=== PATIENT | female | born 1940 | race Caucasian/White ===

== ENCOUNTER → 2016-09-23 16:24 | Outpatient (CLI) | payer MEDICARE, BC ==
[2013-12-30 07:43] VITALS: BMI 36.6
[~2016-09-23 16:24] MED LIST: ASPIRIN325 MG PO; COREG 3.1253.125 MG PO; MULTIGEN FOLIC1 EACH PO; PRILOSEC20 MG PO
== END | disposition home or self-care (01) ==
LOC: D.MAMMO 11:15
DX: Z12.31 Encounter for screening mammogram for malignant neoplasm of breast (principal)

== ENCOUNTER → 2016-10-31 17:13 | Outpatient (CLI) | payer MEDICARE, BC ==
[2013-12-30 07:43] VITALS: BMI 36.6
== END | disposition home or self-care (01) ==
LOC: D.MAMMO 13:30
DX: R92.8 Other abnormal and inconclusive findings on diagnostic imaging of breast (principal)

== ENCOUNTER 2017-06-22 21:21 | Emergency (ER) | payer MEDICARE, BC ==
[2013-12-30 07:43] VITALS: BMI 36.6
[2017-06-22 22:24] LABS: APPEARANCE CLOUDY (CLEAR); COLOR YELLOW (YELLOW); GLUCOSE NEGATIVE (NEGATIVE); KETONE NEGATIVE (NEGATIVE); NITRITE POSITIVE (NEGATIVE); PROTEIN 1+ mg/dL (NEGATIVE); SPECIFIC GRAVITY 1.015 (1.005-1.020); UROBILINOGEN NORMAL (NORMAL)
[2017-06-22 22:25] LABS: BILIRUBIN NEGATIVE (NEGATIVE)
[2017-06-22 22:33] LABS: BACTERIA MODERATE /hpf (NONE SEEN); EPITHELIAL CELLS 0-5 /hpf (0-5); WHITE CELLS - URINE >50 /hpf (0-5)
[2017-07-03] MEDS ORDERED: PROTONIX40 MG PO (07:14)
[2017-07-03] MEDS ORDERED: CARAFATE1 G/10 ML PO (07:14)
== END 2017-06-22 22:43 | disposition home or self-care (01) ==
LOC: D.ER 21:21
PROVIDERS: Family Medicine
DX: N39.0 Urinary tract infection, site not specified (principal); K58.9 Irritable bowel syndrome, unspecified

== ENCOUNTER → 2017-09-24 08:04 | Outpatient (CLI) | payer MEDICARE, BC ==
[2017-07-01 13:12] VITALS: BMI 34.1
[~2017-09-24 08:04] MED LIST changes: +CARAFATE1 G/10 ML PO; +PROTONIX40 MG PO
== END | disposition home or self-care (01) ==
LOC: D.RAD 08:04
DX: R13.10 Dysphagia, unspecified (principal); K21.9 Gastro-esophageal reflux disease without esophagitis; K44.9 Diaphragmatic hernia without obstruction or gangrene

== ENCOUNTER 2018-02-02 14:48 | Emergency (ER) | payer MEDICARE, BC ==
[~2018-02-02] VITALS: Ht 170.2 cm; Wt 94.5 kg
--- NOTE | ~2018-02-02 | CN ---
PATIENT NAME:FARHEEN GARCIA MEDICAL RECORD: [id number] : 40 LOCATION:D.ER ADMIT DATE: ACCOUNT: [id number] CONSULTING PHYSICIAN: CARLITOS PARKINSON MD REFERRING PHYSICIAN: NICOLAS WILKS MD DATE OF CONSULTATION: 02/02/2018 DIAGNOSES: 1. Chest pain. 2. GERD. HISTORY: Ms. Garcia presents with chest pain, very atypical, sometimes on the right side, sometimes on the left side, sometimes in her arm. She has been having this for a number of years. She has had 3 Cardiolite stress tests by us and Dr. Taylor, all of which have been normal. She had a cardiac catheterization late in 2013. This was as well normal. Her EKG is normal. Troponin is normal now. REVIEW OF SYSTEMS: The patient reports easy bruising but reports no swollen glands. The patient reports no fever, no night sweats, no significant weight gain, no significant weight loss. No significant exercise tolerance. The patient reports no dry eyes, no irritation, no vision change. Patient reports no difficulty hearing and no ear pain. Patient reports no frequent nose bleeds or nose and sinus problems. Patient reports on arm pain on exertion. No shortness of breath while lying down. No history of heart murmur. Patient reports no cough, no wheezing or coughing up blood. Patient reports no abdominal pain, no vomiting. Normal appetite. No diarrhea and not vomiting blood. No nausea and no constipation. Patient reports no incontinence. No difficulty urinating. No hematuria. No increased frequency. Patient reports no muscle aches. No weakness, no arthralgias, no back pain. No swelling of the extremities. Patient reports no abnormal mole, no jaundice, no rashes. Reports no loss of consciousness. No weakness and no numbness. No seizures, dizziness, or headaches. The patient reports no depression, no sleep disturbance, feeling safe in a relationship and no alcohol abuse. Patient reports on fatigue. Reports no runny nose or sinus pressure. No itching, no hives, and no frequent sneezing. PHYSICAL EXAMINATION: GENERAL APPEARANCE: Well-nourished, well-developed, appears stated age. Level of distress, comfortable. PSYCHIATRIC: Mental status, alert, normal affect. Orientation, oriented to time, place and person. EYES: Lids and conjunctiva, noninjected. No discharge, no pallor. ENT: Lips, teeth, gums, normal dentition. Oropharynx, no cyanosis, no pallor. NECK: Carotid arteries, bilateral normal upstroke, no bruits, no thrills. JUGULAR VEINS: No jugular venous pressure or distention. CERVICAL LYMPH NODES: Nontender, nonenlarged. THYROID: Not enlarged. Nontender. No nodules. LUNGS: Respiratory effort, unlabored. CHEST: Normal curvature. No thoracic deformity. No chest wall tenderness. Percussion, resonant. Auscultation, clear. No wheezes, no rales, no rhonchi. CARDIOVASCULAR: Precordial exam, nondisplaced. No heaves or pericardial thrills. Rate and rhythm, regular. Heart sounds, normal S1, normal S2. No S3, no gallop, no rub. Systolic murmur, not heard. Diastolic murmur, not heard. EXTREMITIES: No cyanosis, no edema. Peripheral pulses, full and equal in all CONSULT REPORT [id number] FARHEEN GARCIA extremities, except as noted. No bruits appreciated. ABDOMEN: Soft, nondistended. Normal aorta. No bruit. Nontender. No masses. Liver, nontender, no hepatomegaly. Spleen, nontender, no splenomegaly. MUSCULOSKELETAL: No joint tenderness. No joint swelling. No erythema. NEUROLOGICAL: Normal gait, normal strength, normal tone. SKIN: Warm and dry. OVERALL IMPRESSION: Atypical chest pain. Normal cardiac studies in the past including multiple stress tests and cardiac catheterization. Normal EKG and normal troponin now with atypical chest pain. At this time, no other cardiac workup or treatment necessary. TRANSINT:[id number] Voice Confirmation ID: [id number] DOCUMENT ID: [id number] CARLITOS PARKINSON MD at 1705 CC: [id number] DICTATION DATE: 02/02/18 170 JET WIPER: 02/02/182025 DEP 02/02/18 [place] [id number] [place] [address]
[2018-02-02 14:52] VITALS: Ht 170.2 cm; Wt 94.5 kg
[2018-02-02] MEDS ORDERED: BAYER CHEWABLE81 MG PO (14:55)
[2018-02-02] MEDS ORDERED: PEPCID AC20 MG PO (14:56)
[2018-02-02] MEDS ORDERED: ANXIETY MED (14:56)
[2018-02-02 15:48] LABS: BASOPHILS 0.4 % (0-2); EOSINOPHILS 4.4 % (0-7); HEMATOCRIT 39.8 % (36.0-48.0); HEMOGLOBIN 12.5 g/dL (12-16); LYMPHOCYTES 41.9 % (15-50); MCH 27.5 pg (26.0-34.0); MCHC 31.4 g/dL (31.0-37.0); MCV 87.5 fL (80.0-100.0); MONOCYTES 6.1 % (2-11); NEUTROPHILS 47.2 % (40-80); PLATELET COUNT 195 10x3/uL (130-400); RBC 4.55 10x6/uL (4.00-5.40); RDW 16.3 % (11.5-14.5); WBC 5.4 10x3/uL (4.8-10.8)
[2018-02-02 16:12] LABS: ALBUMIN 3.5 g/dL (3.4-5.0); ALKALINE PHOSPHATASE 83 U/L (46-116); ALT (SGPT) 16 U/L (10-68); CALC OSMOLALITY 288 mosm/kg (275-300); CALCIUM 8.6 mg/dL (8.5-10.1); CARBON DIOXIDE 26.6 mmol/L (21.0-32.0); CHLORIDE - SERUM 107 mmol/L (98-107); CREATININE - SERUM 1.1 mg/dL (0.6-1.3); GLUCOSE 95 mg/dL (74-106); POTASSIUM - SERUM 3.8 mmol/L (3.5-5.1); PROTEIN - SERUM 6.8 g/dL (6.4-8.2); SODIUM 144 mmol/L (136-145); UREA NITROGEN 18 mg/dL (7-18); eGFR NON AFRICAN AMERICAN 51 mL/min (90-120)
[2018-02-02 16:20] LABS: CREATINE KINASE 61 UL (21-215); TROPONIN-I < 0.017 ng/mL (0.000-0.060)
[2018-02-02 18:03] VITALS: BP 113/57
== END 2018-02-02 17:56 | disposition home or self-care (01) ==
LOC: D.ER 14:48
PROVIDERS: Family Medicine
DX: R07.89 Other chest pain (principal); K21.9 Gastro-esophageal reflux disease without esophagitis